=== PATIENT | female | born 1960 | race Caucasian/White ===

== ENCOUNTER → 2017-04-10 | Outpatient (CLI) | payer MEDICARE, OTHER ==
[2017-04-10 12:08] LABS: Appearance,Urine Clear (Clear); Basophils # (A) 0.1 k/uL (0-0.2); Basophils % (A) 0 %; Bilirubin,Urine Negative (Negative); CHCM 32.2; Eosinophils # (A) 0.1 k/uL (0-0.7); Eosinophils % (A) 1 %; Glucose,Urine (UA) Negative (Negative); HCT 45.1 % (34.0-46.0); HGB 14.3 gm/dL (11.4-16.0); Ketones,Urine Negative (Negative); Leukocyte Esterase,Urine Negative (Negative); Luc # (Auto) 0.09; Luc % (Auto) 1; Lymphocytes # (A) 2.6 k/uL (1.0-4.8); Lymphocytes % (A) 22 %; MCH 30.7 pg (25.0-35.0); MCHC 31.8 g/dL (31.0-37.0); MCV 96.7 fL (80.0-100.0); Mean Platelet Volume 7.5; Monocytes # (A) 0.4 k/uL (0-1.0); Monocytes % (A) 3 %; Neutrophils # (A) 8.5 k/uL (1.3-7.7); Neutrophils % (A) 73 %; Nitrite,Urine Negative (Negative); Protein,Urine Negative (Negative); RBC 4.67 m/uL (3.80-5.40); RDW 13.9 % (11.5-15.5); Specific Gravity,Urine 1.006 (1.001-1.035); UA Billing (MACRO vs. MICRO) CHEM; Urobilinogen,Urine <2.0 mg/dL (<2.0); WBC 11.7 k/uL (3.8-10.6); WBC (Perox) 11.77
[2017-04-10 12:16] LABS: Anion Gap 8 mmol/L; Blood Urea Nitrogen 12 mg/dL (7-17); Calcium 9.8 mg/dL (8.4-10.2); Carbon Dioxide 28 mmol/L (22-30); Chloride 105 mmol/L (98-107); Glucose 100 mg/dL (74-99); Non-African American GFR(MDRD) >60 (>60 ml/min/1.73 sqM); Potassium 4.5 mmol/L (3.5-5.1); Sodium 141 mmol/L (137-145)
== END | disposition home or self-care (01) ==
LOC: LABWHC1 11:36
PROVIDERS: ATTEND Urology
DX: Z01.812 Encounter for preprocedural laboratory examination (principal); E78.00 Pure hypercholesterolemia, unspecified; N39.3 Stress incontinence (female) (male); N81.9 Female genital prolapse, unspecified
CPT/HCPCS: 36415; 80048; 81003; 85025; 87086

== ENCOUNTER 2017-04-19 08:09 | Day surgery (SDC) | payer MEDICARE, OTHER ==
[~2017-04-19 08:09] MED LIST: DEXAMETHASONE SOD PHOSPHATE 10 MG/ML 1 ML VIAL IV ONE; FAMOTIDINE 20 MG/2 ML VIAL IV PRN; HYDROmorphone 1 MG/ML 1 ML SYRINGE IVP PRN; LACTATED RINGERS 1,000 ML IV SCH; LIDOCAINE 1% 20 ML VIAL (10MG/ML) FOR IV START INTRADERMA PRN; MIDAZOLAM 2 MG/2 ML VIAL IV PRN; ONDANSETRON 4 MG/2 ML VIAL IVP PRN; ceFAZolin 1,000 MG in DEXTROSE/WATER 1 50ML.BAG IV ONE
[2017-04-19] MEDS ORDERED: LIDOCAINE 1% 20 ML VIAL (10MG/ML) FOR IV START INTRADERMA ONE (08:42)
[2017-04-19 09:03] LABS: Prothrombin Time 10.4 sec (9.0-12.0)
[2017-04-19] MEDS ORDERED: SCOPOLAMINE 1.5MG/72HR PATCH TRANSDERM STA (09:31)
[2017-04-19] MEDS ORDERED: LIDOCAINE 1% INJ 10MG/ML (20 ML MDV) ONE (10:07)
[2017-04-19] MEDS ORDERED: fentaNYL (PF) 50 MCG/ML 2 ML AMP ONE (10:07)
[2017-04-19] MEDS ORDERED: MIDAZOLAM 2 MG/2 ML VIAL ONE (10:07)
[2017-04-19] MEDS ORDERED: ALBUTEROL INHALER 60 PUFF/8 GM INHALER INHALATION ONE (10:07)
[2017-04-19] MEDS ORDERED: SUCCINYLCHOLINE CHLORIDE 100 MG/5 ML SYR IV ONE (10:07)
[2017-04-19] MEDS ORDERED: PROPOFOL 10 MG/ML 20 ML VIAL IV ONE (10:07)
[2017-04-19] MEDS ORDERED: VASOPRESSIN 20 UNIT/ML 1 ML VIAL SQ ONE (10:33)
[2017-04-19] MEDS ORDERED: BUPIVACAIN-EPI 0.5%-1:200,000 30 ML VIAL SQ ONE (10:34)
[2017-04-19] MEDS ORDERED: BACITRACIN 500 UNIT/GM OINT 28.4 GM TUBE TOPICAL ONE (10:35)
[2017-04-19] MEDS ORDERED: GENTAMICIN 80 MG in SODIUM CHLORIDE 0.9% 500 ML IRRIGATION ONE (10:36)
[2017-04-19] MEDS ORDERED: IPRATROPIUM-ALBUTEROL 3 ML NEB INHALATION PRN (10:58)
--- NOTE | 2017-04-19 11:07 | P.OP ---
Date of Procedure: 04/19/17 Preoperative Diagnosis: Stress urinary incontinence, cystocele Postoperative Diagnosis: Same Procedure(s) Performed: Trans-obturator tape, anterior repair Implants: Anesthesia: CAMDENA Surgeon: Nikolas Wilhelm Estimated Blood Loss (ml): 50 Pathology: none sent Condition: stable Disposition: PACU Indications for Procedure: The patient is a 57-year-old female with stress urinary incontinence and a cystocele grade 2 she come for a trans-obturator tape and anterior repair the risks and complications including infection bleeding pain erosion and dyspareunia failure to control the incontinence urine retention graft issues been explained and understood and accepted. We did discuss at length the mesh controversy Operative Findings: Description of Procedure: The patient is brought to the operating suite she is given a general endotracheal anesthesia. She's placed lithotomy position with sterile prep and drape. A Cha catheters introduced sterilely. The labia sewn laterally with 2 -0 silk. A vaginal speculum was introduced. The anterior vaginal mucosa was elevated off the submucosa with a mixture of 20 units of Pitressin and 250 mL of saline. A midline anterior vaginal incision is made. I dissect the mucosa off the submucosa. The cystocele is reduced. I dissect lateral the bladder neck with Metzenbaum scissors. I make 2 incisions in the inguinal crease at the level of the clitoris. I passed the introducers through the inguinal incisions through the obturator foramen into the vaginal space making sure not to buttonhole the vagina or injure the bladder this is done bilaterally. I then irrigate the bladder to make sure there is no evidence of bladder injury and there is none as he urine is clear. I attached the tapes to the introducers and pull them back through the obturator foramen bilaterally. The graft sits at the mid urethra nicely such that a hemostat fit between the urethra and the graft. The redundant achieving is removed off the graft. Closed the anterior repair using interrupted 2-0 Vicryl's. The skin is then closed using a running 2-0 Vicryl. The redundant sheathing in the inguinal incisions are excised in the inguinal incisions are closed with 4-0 Vicryl. A vaginal packs place. The urine remains clear. The 2-0 silk's are removed. The patient's awake and returned recovery room good condition. She tolerated the procedure well. Blood loss is approximately 50 mL.
[2017-04-19] MEDS: HYDROcodone/APAP 7.5-325MG 1 EACH TAB PO PRN ×3 (13:14→21:49)
[2017-04-19 13:37] VITALS: BMI 24.7
[2017-04-19] MEDS ORDERED: ONDANSETRON 4 MG/2 ML VIAL IVP PRN (16:56)
[2017-04-19] MEDS ORDERED: NICOTINE 21MG/24HR PATCH TRANSDERM SCH (17:15)
[2017-04-19] MEDS: GABAPENTIN 300 MG CAP PO SCH (17:41)
[2017-04-19] MEDS: DEXTROSE 5%-0.45% NACL 1,000 ML IV SCH (17:44)
[2017-04-19] MEDS ORDERED: GABAPENTIN 400 MG CAP PO SCH (21:00)
[2017-04-19] MEDS ORDERED: traZODone HCL 50 MG TAB PO SCH (21:00)
[2017-04-19] MEDS: SYMBICORT 160-4.5 MCG INHALER INHALATION SCH (21:08)
[2017-04-20] MEDS: HYDROcodone/APAP 7.5-325MG 1 EACH TAB PO PRN ×2 (04:22→08:48)
[2017-04-20] MEDS: DEXTROSE 5%-0.45% NACL 1,000 ML IV SCH (04:24)
--- NOTE | 2017-04-20 06:31 | P.DS ---
Providers Attending physician: Nikolas Wilhelm Primary care physician: [facility] Course: The patient is a 57-year-old female post stroke who has stress incontinence and a cystocele. She was admitted 04/19/2017 for a trans-obturator tape and anterior repair. She underwent this without difficulty. Postoperatively she did well. Her pain was minimal. The packing and Cha were removed this morning. If she voids well she'll be discharged home. Postoperative instructions have been given. She will follow-up in the office in one week. Her condition upon discharge is good. Her activities Limited. Her medications are the same. She has pain medicine at home. Patient Condition at Discharge: Good Plan - Discharge Summary New Discharge Prescriptions: No Action Budesonide/Formoterol Fumarate [Symbicort 160-4.5 Mcg Inhaler] 2 puff INHALATION BID PRN PRN Reason: Shortness Of Breath Ipratropium/Albuterol Sulfate [Combivent Respimat Inhaler] 1 - 2 puff INHALATION QID PRN PRN Reason: Shortness Of Breath Sertraline [Zoloft] 100 mg PO DAILY Aspirin 325 mg PO DAILY traZODone HCL 150 mg PO HS Magnesium Oxide [Magox 400] 400 mg PO DAILY Hydrocodone/Acetaminophen [[place] 7.5-325] 1 tab PO Q4HR PRN PRN Reason: Pain Gabapentin [Neurontin] 600 mg PO BID Fluticasone/Vilanterol [Breo Ellipta 200-25 Mcg INH] 1 inhalation INHALATION DAILY Gabapentin [Neurontin] 1,200 mg PO HS Discharge Medication List Aspirin 325 mg PO DAILY 04/18/17 [History] Budesonide/Formoterol Fumarate [Symbicort 160-4.5 Mcg Inhaler] 2 puff INHALATION BID PRN 04/18/17 [History] Fluticasone/Vilanterol [Breo Ellipta 200-25 Mcg INH] 1 inhalation INHALATION DAILY 04/18/17 [History] Gabapentin [Neurontin] 1,200 mg PO HS 04/18/17 [History] Gabapentin [Neurontin] 600 mg PO BID 04/18/17 [History] Hydrocodone/Acetaminophen [[place] 7.5-325] 1 tab PO Q4HR PRN 04/18/17 [History] Ipratropium/Albuterol Sulfate [Combivent Respimat Inhaler] 1 - 2 puff INHALATION QID PRN 04/18/17 [History] Magnesium Oxide [Magox 400] 400 mg PO DAILY 04/18/17 [History] Sertraline [Zoloft] 100 mg PO DAILY 04/18/17 [History] traZODone HCL 150 mg PO HS 04/18/17 [History] Follow up Appointment(s)/Referral(s): Nikolas Wilhelm MD [STAFF PHYSICIAN] - 1 Week Patient Instructions/Handouts: Bladder Sling Procedure (DC) Discharge Disposition: HOME SELF-CARE
[2017-04-20] MEDS: SYMBICORT 160-4.5 MCG INHALER INHALATION SCH (08:32)
[2017-04-20] MEDS: GABAPENTIN 300 MG CAP PO SCH (08:48)
[2017-04-20] MEDS ORDERED: NON-FORMULARY DRUG (Fluticasone/Vilanterol [Breo Ellipta 200-25 Mcg Inh] 1 INHALATION) INHALATION SCH (09:00)
[2017-04-20] MEDS ORDERED: MAGNESIUM OXIDE 400 MG TAB PO SCH (09:00)
[2017-04-20] MEDS ORDERED: SERTRALINE 100 MG TAB PO SCH (09:00)
[2017-04-20 09:31] VITALS: BP 108/57; PULSE 88; RESP 20; TEMP 98.1
== END 2017-04-20 10:05 | disposition home or self-care (01) ==
LOC: OR 08:09 → 6PED 11:09 → OR 04-20 10:05
PROVIDERS: ATTEND Urology
DX: N81.11 Cystocele, midline (principal); N39.46 Mixed incontinence; R35.1 Nocturia; E78.00 Pure hypercholesterolemia, unspecified; F41.9 Anxiety disorder, unspecified; J44.9 Chronic obstructive pulmonary disease, unspecified; F32.9 Major depressive disorder, single episode, unspecified; F17.210 Nicotine dependence, cigarettes, uncomplicated; I69.398 Other sequelae of cerebral infarction; K21.9 Gastro-esophageal reflux disease without esophagitis; Z79.82 Long term (current) use of aspirin; Z79.51 Long term (current) use of inhaled steroids; Z79.891 Long term (current) use of opiate analgesic; Z79.899 Other long term (current) drug therapy; Z88.5 Allergy status to narcotic agent
CPT/HCPCS: 94640 ×3; 93005; 85610; 85730; 57240; C1771; S4990; J2250; J1580; J1100; J2405; J2001; J3010; J0690; J0330; J2704

== ENCOUNTER → 2018-07-06 | Outpatient (CLI) | payer MEDICARE, OTHER ==
--- NOTE | 2018-07-08 22:35 | CT ---
EXAMINATION TYPE: CT abdomen pelvis wo con DATE OF EXAM: 07/06/2018 HISTORY: Lower abdominal pain per patient. Ventral hernia per order. CT DLP: 795 mGycm. Automated Exposure Control for Dose Reduction was Utilized. TECHNIQUE: CT scan of the abdomen and pelvis is performed without oral or IV contrast. COMPARISON: NONE FINDINGS: Within the limitations of a non-contrast study, the following observations are made. LUNG BASES: There is patchy bibasilar scarring and/or atelectasis. There is suspected closure atrial septal closure device axial image 8. Moderate to severe coronary constipation in the LAD and right ci rcumflex distribution is present. LIVER/GB: Cholecystectomy clips are noted. PANCREAS: No significant abnormality is seen. SPLEEN: No significant abnormality is seen. ADRENALS: There is 1.9 x 1.5 cm left adrenal mass, Hounsfield units average 14. A malignant etiology cannot be excluded. This is however unchanged in size from chest CT April 06, 2016 thus favoring benign etiology. KIDNEYS: No renal calculi or hydronephrosis. Subcentimeter exophytic low dense lesion lower pole of l eft kidney is too small to further characterize. Bladder is poorly distended and thus suboptimally ev aluated. BOWEL: Evaluation of bowel is suboptimal secondary to lack of enteric contrast. Small hiatal hernia s een. Gas filled mildly prominent stomach is seen. There is prominence of debris in the antrum extendi ng into first portion of duodenum. There is no suspicious small or large bowel dilatation otherwise s een. There is low lying cecum into the anterior right pelvis. There is slight gaseous prominence of c olon near splenic flexure. GENITAL ORGANS: Anteverted uterus is seen. Some scattered pelvic phleboliths are present. LYMPH NODES: No greater than 1cm abdominal or pelvic lymph nodes are appreciated. OSSEOUS STRUCTURES: Moderate to advanced disc space narrowing L5-S1 level with mild to moderate anter ior spurring is present. Posterior disc herniation L4-L5 level effaces the anterior thecal sac sagitt al image 56 and axial image 77 right paracentral location. Facet arthropathy lower lumbar levels is n oted. Moderate multilevel spurring in the thoracic spine is seen. Moderate joint space loss in both h ips is present. OTHER: There is tiny fat-containing umbilical hernia. No additional suspicious ventral wall hernia is identified. IMPRESSION: Tiny fat-containing umbilical hernia. No additional ventral wall hernia is evident.
== END | disposition home or self-care (01) ==
LOC: RADCTMAIN 18:47
PROVIDERS: ATTEND Surgery Plastic and Reconstructive Surgery
DX: K42.9 Umbilical hernia without obstruction or gangrene (principal)
CPT/HCPCS: 74176

== ENCOUNTER → 2018-07-06 | Outpatient (CLI) | payer MEDICARE, OTHER ==
--- NOTE | 2018-07-10 12:15 | MM ---
Reason for exam: screening (asymptomatic). Last mammogram was performed 2 years and 4 months ago. History: Patient is postmenopausal and history of endometrial cancer. Benign core biopsy of the right breast. Physical Findings: A clinical breast exam by your physician is recommended on an annual basis and results should be correlated with mammographic findings. MG 3D Screening Mammo W/Cad Bilateral CC and MLO view(s) were taken. Prior study comparison: March 16, 2016, bilateral MG screening mammo w CAD. February 22, 2013, CAD bilateral diagnostic mammogram. There are scattered fibroglandular densities. Previous mammotome biopsy in the right breast. No significant changes when compared with prior studies. ASSESSMENT: Benign, BI-RAD 2 RECOMMENDATION: Routine screening mammogram of both breasts in 1 year.
== END | disposition home or self-care (01) ==
LOC: RADMAMWWP 09:21
PROVIDERS: ATTEND Family Medicine
DX: Z12.31 Encounter for screening mammogram for malignant neoplasm of breast (principal)
CPT/HCPCS: 77063; 77067

== ENCOUNTER → 2018-08-27 | Outpatient (CLI) | payer MEDICARE, OTHER ==
--- NOTE | 2018-08-27 12:08 | FL ---
EXAMINATION TYPE: FL sniff test without CXR DATE OF EXAM: 08/27/2018 COMPARISON: CT thorax dated 04/06/2016 HISTORY: Prior CVA. Diaphragmatic disorder. TECHNIQUE: Fluoroscopy. 37 seconds of fluoroscopy time was utilized with 0 images saved. FINDINGS: Chronic left hemidiaphragm elevation is unchanged from the prior CT thorax of 04/06/2016. Th ere is symmetric hemidiaphragm excursion without paradoxical motion on real-time fluoroscopy. Left he midiaphragm elevation is noted on the exam of 10/02/2013 as well. IMPRESSION: No abnormal diaphragmatic motion to suggest phrenic nerve palsy or paralysis.
== END | disposition home or self-care (01) ==
LOC: RADFLWHC 11:15
PROVIDERS: ATTEND Internal Medicine
DX: J98.6 Disorders of diaphragm (principal); Z88.5 Allergy status to narcotic agent
CPT/HCPCS: 76000

== ENCOUNTER 2018-09-19 08:53 | Day surgery (SDC) | payer MEDICARE, OTHER ==
[2018-08-24 14:18] VITALS: BMI 23.1
--- NOTE | 2018-09-19 05:47 | P.GSHP ---
History of Present Illness H&P Date: 09/19/18 CHIEF COMPLAINT: GERD and colon screen HISTORY OF PRESENT ILLNESS: The patient is a 58-year-old female who presents with gastroesophageal reflux disease and need for colon screen. Upper and lower endoscopy were offered for further evaluation and management. PAST MEDICAL HISTORY: Please see list. PAST SURGICAL HISTORY: Please see list. MEDICATIONS: Please see list. ALLERGIES: Please see list. SOCIAL HISTORY: No illicit drug use FAMILY HISTORY: No reports of Crohn disease or ulcerative colitis. REVIEW OF ORGAN SYSTEMS: CONSTITUTIONAL: No reports of fevers or chills. GI: Denies any blood in stools or constipation. PHYSICAL EXAM: VITAL SIGNS: Stable GENERAL: Well-developed pleasant in no acute distress. HEENT: No scleral icterus. Extraocular movements grossly intact. Moist buccal mucosa. NECK: Supple without lymphadenopathy. CHEST: Unlabored respirations. Equal bilateral excursions. CARDIOVASCULAR: Regular rate and rhythm. Distal 2+ pulses. ABDOMEN: Soft, nondistended. MUSCULOSKELETAL: No clubbing, cyanosis, or edema. ASSESSMENT: 1. Gastroesophageal reflux disease 2. Colon screen. PLAN: 1. 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 2016 bladder sling, anterior vaginal repair Past Anesthesia/Blood Transfusion Reactions: Motion Sickness Smoking Status: Current every day smoker - Past Family History Mother Family Medical History: Cancer Father Family Medical History: Deep Vein Thrombosis (DVT) Medications and Allergies Home Medications Medication Instructions Recorded Confirmed Type Budesonide/Formoterol Fumarate 2 puff INHALATION BID PRN 04/18/17 09/17/18 History [Symbicort 160-4.5 Mcg Inhaler] Fluticasone/Vilanterol [Breo 1 inhalation INHALATION QAM 04/18/17 09/17/18 History Ellipta 200-25 Mcg INH] Gabapentin [Neurontin] 600 mg PO QID PRN 04/18/17 09/17/18 History Hydrocodone/Acetaminophen [[place] 1 tab PO TID PRN 04/18/17 09/17/18 History 7.5-325] Ipratropium/Albuterol Sulfate 1 - 2 puff INHALATION QID PRN 04/18/17 09/17/18 History [Combivent Respimat Inhaler] traZODone HCL 150 mg PO HS 04/18/17 09/17/18 History Allergies Allergy/AdvReac Type Severity Reaction Status Date / Time codeine Allergy Severe Rapid Verified 09/17/18 10:16 Heart Rate, CHEST PAIN
[~2018-09-19 08:53] MED LIST changes: -DEXAMETHASONE SOD PHOSPHATE 10 MG/ML 1 ML VIAL IV ONE; -FAMOTIDINE 20 MG/2 ML VIAL IV PRN; -LIDOCAINE 1% 20 ML VIAL (10MG/ML) FOR IV START INTRADERMA PRN; -MIDAZOLAM 2 MG/2 ML VIAL IV PRN; -ONDANSETRON 4 MG/2 ML VIAL IVP PRN; -ceFAZolin 1,000 MG in DEXTROSE/WATER 1 50ML.BAG IV ONE
[2018-09-19] MEDS ORDERED: LIDOCAINE 1% 20 ML VIAL (10MG/ML) FOR IV START INTRADERMA ONE (09:59)
[2018-09-19 10:03] VITALS: TEMP 98.4
[2018-09-19] MEDS ORDERED: PROPOFOL 10 MG/ML 20 ML VIAL IV ONE (10:28)
[2018-09-19] MEDS ORDERED: LIDOCAINE 1% INJ 10MG/ML (20 ML MDV) ONE (10:28)
--- NOTE | 2018-09-19 10:41 | P.PCN ---
Date of Procedure: 09/19/18 Description of Procedure: PREOPERATIVE DIAGNOSIS: Gastroesophageal reflux disease. POSTOPERATIVE DIAGNOSIS: Erosive esophagitis Gastritis. Gastroesophageal reflux disease. Diaphragmatic hiatal hernia OPERATION: Esophagogastroduodenoscopy with biopsies along antrum and GE junction SURGEON: Carmencita Graham MD ANESTHESIA: MAC. INDICATIONS: The patient is a 58-year-old female who presents with a history of reflux disease. Benefits and risks of the procedure were described. Informed consent was obtained. DESCRIPTION: The patient was brought into the endoscopy suite and laid in the left lateral decubitus position. An Olympus gastroscope was passed along the posterior oropharynx down to the distal esophagus where the squamocolumnar junction was encountered at 35 cm from the incisors. The stomach was entered and no bile reflux was found. Additional findings are listed below. Biopsies with cold forceps were obtained of the antrum. The first through third portion of the duodenum was examined and unremarkable. Retroflexion of the scope confirmed Hill grade 2 lower esophageal valve. The squamocolumnar junction demonstrated LA grade C erosive esophagitis. The stomach was desufflated. The patient tolerated the procedure well. FINDINGS: Squamocolumnar junction 35 cm from the incisors. Diaphragmatic hiatus at 37 cm. Hiatal hernia, 2 cm Hill grade 2 lower esophageal valve. LA grade C erosive esophagitis with ulceration No active duodenitis. Chronic gastritis RECOMMENDATIONS: Upper endoscopy as needed.
--- NOTE | 2018-09-19 11:00 | P.PCN ---
Date of Procedure: 09/19/18 Description of Procedure: PREOPERATIVE DIAGNOSIS: Colonoscopy screening POSTOPERATIVE DIAGNOSIS: Colonoscopy screening Ascending colon tubular adenoma Sigmoid colon adenoma Transverse colon adenoma External hemorrhoids, grade 2. OPERATION: Colonoscopy to the ileocecal valve and appendiceal orifice. Colonoscopy with multiple hot snare polypectomies SURGEON: Carmencita Graham MD. ANESTHESIA: MAC. INDICATIONS: The patient is a 58-year-old female who presents for colonoscopy screening. Benefits and risks were described and informed consent was obtained. DESCRIPTION OF PROCEDURE: The patient had undergone Gatorade, MiraLAX and Dulcolax prep. She had been brought into the operating room and laid in the left lateral decubitus position. After adequate intravenous sedation, the rectum was examined with 2% lidocaine jelly. External hemorrhoids were encountered. The rectal tone was within normal limits. No lesions were palpated in the rectal vault. An Olympus colonoscope was advanced until the ascending was reached. Abdominal wall pressure was used to advance the scope. The prep was fair with visualization of the mucosal folds. The scope was removed with visualization of each mucosal fold. No scattered diverticulosis was encountered. Multiple colonic polyps were found and snare polypectomy. No evidence of focal colitis was found. Retroflexion of the scope demonstrated grade 2 internal hemorrhoids without active bleeding or inflammation. The colon was desufflated. The patient had tolerated the procedure well. Withdrawal time was over 6 minutes. FINDINGS: Internal hemorrhoids, grade 1 External hemorrhoids, grade 2. No arteriovenous malformations. No sigmoid diverticulosis Removal of 3 polyps: - Snare polypectomy 20 cm from the anal verge, 4 mm tubulovillous adenoma polyp. - Snare polypectomy mid transverse colon, 8 mm flat villous adenoma polyp. - Snare polypectomy ascending colon 6 mm flat villous adenoma polyp. No focal colitis. RECOMMENDATIONS: Given severity of tubular adenomas, recommend repeat colonoscopy 2 years, 2019. Plan - Discharge Summary New Discharge Prescriptions: New Omeprazole 40 mg PO DAILY #14 capsule.dr Bhatia Action Budesonide/Formoterol Fumarate [Symbicort 160-4.5 Mcg Inhaler] 2 puff INHALATION BID PRN PRN Reason: Shortness Of Breath Ipratropium/Albuterol Sulfate [Combivent Respimat Inhaler] 1 - 2 puff INHALATION QID PRN PRN Reason: Shortness Of Breath traZODone HCL 150 mg PO HS Hydrocodone/Acetaminophen [[place] 7.5-325] 1 tab PO TID PRN PRN Reason: Pain Gabapentin [Neurontin] 600 mg PO QID PRN PRN Reason: Pain Fluticasone/Vilanterol [Breo Ellipta 200-25 Mcg INH] 1 inhalation INHALATION QAM Discharge Medication List Budesonide/Formoterol Fumarate [Symbicort 160-4.5 Mcg Inhaler] 2 puff INHALATION BID PRN 04/18/17 [History] Fluticasone/Vilanterol [Breo Ellipta 200-25 Mcg INH] 1 inhalation INHALATION QAM 04/18/17 [History] Gabapentin [Neurontin] 600 mg PO QID PRN 04/18/17 [History] Hydrocodone/Acetaminophen [[place] 7.5-325] 1 tab PO TID PRN 04/18/17 [History] Ipratropium/Albuterol Sulfate [Combivent Respimat Inhaler] 1 - 2 puff INHALATION QID PRN 04/18/17 [History] traZODone HCL 150 mg PO HS 04/18/17 [History] Omeprazole 40 mg PO DAILY #14 capsule. 09/19/18 [Rx] Follow up Appointment(s)/Referral(s): Carmencita Graham MD [STAFF PHYSICIAN] - 10/02/18 Patient Instructions/Handouts: Gastroesophageal Reflux Disease (DC), Hiatal Hernia (DC) Discharge Disposition: HOME SELF-CARE
[2018-09-19 11:20] VITALS: RESP 16
[2018-09-19 11:25] VITALS: BP 119/63; PULSE 90
== END 2018-09-19 11:45 | disposition home or self-care (01) ==
LOC: ORWHC2ENDO 08:53
PROVIDERS: ATTEND Surgery Plastic and Reconstructive Surgery
DX: Z12.11 Encounter for screening for malignant neoplasm of colon (principal); D12.5 Benign neoplasm of sigmoid colon; D12.3 Benign neoplasm of transverse colon; D12.2 Benign neoplasm of ascending colon; K21.9 Gastro-esophageal reflux disease without esophagitis; K64.4 Residual hemorrhoidal skin tags; K64.1 Second degree hemorrhoids; J44.9 Chronic obstructive pulmonary disease, unspecified; I69.351 Hemiplegia and hemiparesis following cerebral infarction affecting right dominant side; M19.90 Unspecified osteoarthritis, unspecified site; F17.200 Nicotine dependence, unspecified, uncomplicated; K22.10 Ulcer of esophagus without bleeding; K29.50 Unspecified chronic gastritis without bleeding; K44.9 Diaphragmatic hernia without obstruction or gangrene; Z99.81 Dependence on supplemental oxygen; G43.909 Migraine, unspecified, not intractable, without status migrainosus; Z79.51 Long term (current) use of inhaled steroids; Z79.899 Other long term (current) drug therapy; Z88.5 Allergy status to narcotic agent
CPT/HCPCS: 88305; 45385; 43239; J2001; J2704

== ENCOUNTER → 2018-10-08 | Outpatient (CLI) | payer MEDICARE, OTHER ==
[2018-10-08 16:21] LABS: MCH 30.1 pg (25.0-35.0); MCHC 32.6 g/dL (31.0-37.0); MCV 92.3 fL (80.0-100.0); Mean Platelet Volume 7.4; Platelet Count 231 k/uL (150-450); RBC 5.31 m/uL (3.80-5.40); RDW 13.7 % (11.5-15.5); WBC 9.1 k/uL (3.8-10.6)
[2018-10-08 16:27] LABS: Anion Gap 7 mmol/L; Blood Urea Nitrogen 12 mg/dL (7-17); Carbon Dioxide 26 mmol/L (22-30); Chloride 109 mmol/L (98-107); Sodium 142 mmol/L (137-145)
== END ==
LOC: LABPAT 15:40
PROVIDERS: ATTEND Internal Medicine Interventional Cardiology
DX: Z01.812 Encounter for preprocedural laboratory examination (principal); Q21.1 Atrial septal defect; R06.02 Shortness of breath; R94.39 Abnormal result of other cardiovascular function study
CPT/HCPCS: 36415; 80051; 82565; 84520; 85027

== ENCOUNTER → 2019-01-21 | Outpatient (CLI) | payer MEDICARE, OTHER | LOC: LABWHC1 11:34 | PROVIDERS: ATTEND Psychiatry & Neurology Pain Medicine | DX: Z01.818 Encounter for other preprocedural examination (principal) | CPT/HCPCS: 36415; 93005 ==

== ENCOUNTER → 2019-09-19 | Outpatient (CLI) | payer MEDICARE, OTHER ==
--- NOTE | 2019-09-19 16:45 | CTL ---
EXAMINATION TYPE: CT Low Dose Lung DATE OF EXAM ORDERED: 09/19/2019 COMPARISON: None HISTORY: . Low Dose CT Lung Screening CT DLP: [address] CTDI: 2.18 mGy IV CONTRAST USED: None. SCREENING VISIT: First visit COMPARISON: None. TECHNIQUE: Low dose computed tomography scan was performed through the chest at 1 millimeter thick se ctions and reconstructed images in the coronal plane at [address] DIAGNOSTIC QUALITY: Satisfactory FINDINGS: LUNG NODULES: Several sub-3 mm pulmonary nodules left lower lobe seen best on image 26. Additional no dules seen image 27. Multiple nodules are seen at the right lung base measuring up to 6.4 mm. No della tional nodules are evident. LUNGS: COPD: Severity: Mild Fibrosis: Severity:None Lymph nodes: None Other findings: None RIGHT PLEURAL SPACE: Effusion: None Calcification: None Thickening: None Pneumothorax: None LEFT PLEURAL SPACE: Effusion: None Calcification: None Thickening: None Pneumothorax: None HEART: Heart Size: Mildly enlarged Coronary calcification: Mild Pericardial effusion: None OTHER FINDINGS: Upper abdomen: No significant abnormality Bony thorax: Degenerative changes Supraclavicular region: No significant abnormalityOther: No significant abnormalityI IMPRESSION: 1. Probably benign findings. Six-month follow-up low dose CT recommended of the chest. FOLLOW UP CT CHEST RECOMMENDATION: Follow-up screening in one year. Recommend smoking cessation. CT LUNG RAD: LUNG RAD CATEGORY 3 probably benign
== END | disposition home or self-care (01) ==
LOC: RADCTMAIN 15:58
PROVIDERS: ATTEND Internal Medicine
DX: Z12.2 Encounter for screening for malignant neoplasm of respiratory organs (principal); Z87.891 Personal history of nicotine dependence

== ENCOUNTER → 2020-05-19 | Outpatient (CLI) | payer MEDICARE, OTHER ==
--- NOTE | 2020-05-20 07:46 | CTL ---
EXAMINATION TYPE: CT Low Dose Lung DATE OF EXAM ORDERED: 05/19/2020 HISTORY: Personal history tobacco use and nicotine dependence. Lung cancer screening CT DLP: [address] CTDI: 2.26 mGy Automated exposure control for dose reduction was used. SCREENING VISIT: 2 COMPARISON: Prior low dose lung CT 09/09/2019 TECHNIQUE: Low dose computed tomography scan was performed through the chest at 1 mm thick sections a nd reconstructed images in the coronal plane at [address] DIAGNOSTIC QUALITY: Satisfactory FINDINGS: LUNG NODULES: Stable LUNGS: Stable, mild COPD2 and minimal fibrosis RIGHT PLEURAL SPACE: Effusion: None Calcification: None Thickening: None Pneumothorax: None LEFT PLEURAL SPACE: Effusion: None Calcification: None Thickening: None Pneumothorax: None HEART: Stable coronary artery calcifications and normal heart size. Postprocedural changes are noted along t he atrial septum OTHER FINDINGS: Upper abdomen: Postcholecystectomy Bony thorax: Unchanged Supraclavicular region: Unremarkable Other: There is a small hiatal hernia. IMPRESSION: Benign lung screening FOLLOW UP CT CHEST RECOMMENDATION: [address] LUNG RAD: 2
== END | disposition home or self-care (01) ==
LOC: RADCTMAIN 16:55
PROVIDERS: ATTEND Internal Medicine
DX: Z12.2 Encounter for screening for malignant neoplasm of respiratory organs (principal); F17.210 Nicotine dependence, cigarettes, uncomplicated

== ENCOUNTER 2020-10-08 16:40 | Emergency (ER) | payer MEDICARE, OTHER ==
[2020-10-08 16:44] VITALS: TEMP 98.4
--- NOTE | 2020-10-08 17:03 | ED ---
General Adult HPI - General Chief complaint: Chest Pain Stated complaint: Chest Pain Time Seen by Provider: 10/08/20 16:46 Source: patient Mode of arrival: ambulatory Limitations: no limitations - History of Present Illness Initial comments: Dictation was produced using INDOM dictation software. please excuse any grammatical, word or spelling errors. This patient was cared for during a federal and state declared state of emergency secondary to Covid 19 Chief Complaint: 60-year-old female past medical history of COPD, CVA with resi dual right-sided weakness presents with chest pain, shortness of breath History of Present Illness: 89-year-old female she was course to coming to the emergency department by her daughter. Patient states that for the last year she's been having episodes of chest pain and shortness of breath. She reports that she gets these episodes maybe once every 4 days. She states the pain is pleuritic in nature located to the right anterior chest. Sometimes when she gets these attacks they can be very severe causing her to double over. She's been having these episodes for approximately one year now. Patient also complains of shortness of breath. She attributes this to her COPD. She has a chronic cough that has been unchanged. The reason why she is in emergency department today is because she was out with her daughter who noticed that patient was having symptoms so she was brought to the emergency room. Patient has any constitutional symptoms. No obvious exposures to anyone with coronavi yanni. She does have a history of cerebral vascular accident. She has a history of cardiac septal defect. Patient also has complaint of a in her bellybutton that she is having difficulty cleaning. Dad reports that she tries to clean twice a day. She describes the debris as "crispy." Patient does not have any history of DVT. She denies any lower extremity swelling. No history of cancer The ROS documented in this emergency department record has been reviewed and confirmed by me. Those systems with pertinent positive or negative responses have been documented in the HPI. All other systems are other negative and/or noncontributory. PHYSICAL EXAM: General Impression: Alert and oriented x3, not in acute distress HEENT: Normocephalic atraumatic, extra-ocular movements intact, pupils equal and reactive to light bilaterally, mucous membranes moist. Cardiovascular: Heart regular rate and rhythm Chest: Able to complete full sentences, no retractions, no tachypnea, mild diffuse crackles to auscultation of the lungs some the left lung base Abdomen: abdomen soft, non-tender, non-distended, no organomegaly Musculoskeletal: Pulses present and equal in all extremities, no peripheral kaitlin ma Motor: no focal deficits noted Neurological: CN II-XII grossly intact, contracture to the right upper extremity Skin: Intact with no visualized rashes Psych: Normal affect and mood ED course: 60-year-old female presents with chest pain, shortness of breath ongoing for one year. Patient's pain is described as very atypical. As upon arrival shows 93% on room air, worse vital signs within acceptable limits. Patient's well-appearing at bedside. Patient laughs and jokes with me. She does have end inspiratory crackles with auscultation to the lungs. There is concern patient has pneumonia. Clinical presentation does not suggest possible pulmonary embolus. She has no history of DVT, no history of PE. No history of lower extremity swelling. Physical examination is benign. She is not hypoxic or tachycardic. Laboratory evaluation obtained. CBC, coag panel, metabolic panel is unrema rkable. Troponin is negative. Brain natruretic peptides negative. Carotid virus test negative. Chest x-ray shows no acute processes. Patient's belly button was cleaned. She is satisfied with the result. Patient discharged. Patient vital presentation consistent with atypical chest pain. Patient is advised follow-up with her primary care physician. EKG interpretation: Ventricular rate 90, normal sinus rhythm,. Interval 116, QRS 84, QTC 445. No MS prolongation, no QTC prolongation, no ST or T-wave changes noted. EKG compared to 01/21/2019 showing no changes. Overall, this EKG is unremarkable - Related Data Home Medications Medication Instructions Recorded Confirmed Fluticasone/Vilanterol [Breo 1 inhalation INHALATION RT-DAILY 04/18/17 10/08/20 Ellipta 200-25 Mcg INH] Gabapentin [Neurontin] 600 mg PO QID PRN 04/18/17 10/08/20 Hydrocodone/Acetaminophen [[place] 1 tab PO TID PRN 04/18/17 10/08/20 7.5-325] Ipratropium/Albuterol Sulfate 1 - 2 puff INHALATION QID PRN 04/18/17 10/08/20 [Combivent Respimat Inhaler] traZODone HCL 150 mg PO HS 04/18/17 10/08/20 Albuterol Sulfate [Proair Hfa] 1 - 2 puff INHALATION Q6HR PRN 08/25/20 10/08/20 Mirabegron [Myrbetriq] 25 mg PO DAILY 08/25/20 10/08/20 Baclofen 5 - 10 mg PO TID PRN 10/08/20 10/08/20 Xzprmcdcyb-Mnqrgfzacqyml-Dhqoaglp 1 tab PO ONCE PRN 10/08/20 10/08/20 (Unknown Strength) Previous Rx's Medication Instructions Recorded Omeprazole 40 mg PO DAILY #14 capsule. 09/19/18 Allergies Allergy/AdvReac Type Severity Reaction Status Date / Time codeine Allergy Severe Rapid Verified 10/08/20 17:49 Heart Rate, CHEST PAIN Review of Systems ROS Statement: Those systems with pertinent positive or pertinent negative responses have been documented in the HPI. ROS Other: All systems not noted in ROS Statement are negative. 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 Problems with speech. Back pain. History of Any Multi-Drug Resistant Organisms: None Reported Past Surgical History: Cholecystectomy Additional Past Surgical History / Comment(s): REPAIR OF HOLE IN HEART". 04-19-2017 bladder sling, anterior vaginal repair Past Anesthesia/Blood Transfusion Reactions: No Reported Reaction Past Psychological History: No Psychological Hx Reported Smoking Status: Current every day smoker Past Alcohol Use History: None Reported Past Drug Use History: None Reported - Past Family History Mother Family Medical History: Cancer General Exam Limitations: no limitations Course Vital Signs 10/08/20 10/08/20 16:41 18:38 Temperature 98.4 F Pulse Rate 96 82 Respiratory 22 17 Rate Blood Pressure 115/78 112/60 O2 Sat by Pulse 93 L 95 Oximetry Medical Decision Making - Lab Data Result diagrams: 10/08/20 17:09 10/08/20 17:09 Lab Results 10/08/20 10/08/20 10/08/20 Range/Units 17:09 17:09 17:09 WBC 6.3 (3.8-10.6) k/uL RBC 4.64 (3.80-5.40) m/uL Hgb 14.4 (11.4-16.0) gm/dL Hct 42.7 (34.0-46.0) % MCV 92.0 (80.0-100.0) fL MCH 30.9 (25.0-35.0) pg MCHC 33.7 (31.0-37.0) g/dL RDW 13.3 (11.5-15.5) % Plt Count 165 (150-450) k/uL MPV 7.7 Neutrophils % 45 % Lymphocytes % 41 % Monocytes % 8 % Eosinophils % 3 % Basophils % 1 % Neutrophils # 2.8 (1.3-7.7) k/uL Lymphocytes # 2.6 (1.0-4.8) k/uL Monocytes # 0.5 (0-1.0) k/uL Eosinophils # 0.2 (0-0.7) k/uL Basophils # 0.1 (0-0.2) k/uL PT 10.3 (9.0-12.0) sec INR 1.0 (<1.2) APTT 24.5 (22.0-30.0) sec Sodium 137 (137-145) mmol/L Potassium 4.0 (3.5-5.1) mmol/L Chloride 106 (98-107) mmol/L Carbon Dioxide 26 (22-30) mmol/L Anion Gap 5 mmol/L BUN 9 (7-17) mg/dL Creatinine 0.55 (0.52-1.04) mg/dL Est GFR (CKD-EPI)AfAm >90 (>60 ml/min/1.73 sqM) Est GFR (CKD-EPI)NonAf >90 (>60 ml/min/1.73 sqM) Glucose 104 H (74-99) mg/dL Calcium 9.0 (8.4-10.2) mg/dL Magnesium 2.0 (1.6-2.3) mg/dL Total Bilirubin 0.3 (0.2-1.3) mg/dL AST 18 (14-36) U/L ALT 11 (4-34) U/L Alkaline Phosphatase 70 (38-126) U/L Troponin I (0.000-0.034) ng/mL NT-Pro-B Natriuret Pep pg/mL Total Protein 6.8 (6.3-8.2) g/dL Albumin 3.9 (3.5-5.0) g/dL Coronavirus (PCR) (Not Detectd) 10/08/20 10/08/20 10/08/20 Range/Units 17:09 17:09 17:09 WBC (3.8-10.6) k/uL RBC (3.80-5.40) m/uL Hgb (11.4-16.0) gm/dL Hct (34.0-46.0) % MCV (80.0-100.0) fL MCH (25.0-35.0) pg MCHC (31.0-37.0) g/dL RDW (11.5-15.5) % Plt Count (150-450) k/uL MPV Neutrophils % % Lymphocytes % % Monocytes % % Eosinophils % % Basophils % % Neutrophils # (1.3-7.7) k/uL Lymphocytes # (1.0-4.8) k/uL Monocytes # (0-1.0) k/uL Eosinophils # (0-0.7) k/uL Basophils # (0-0.2) k/uL PT (9.0-12.0) sec INR (<1.2) APTT (22.0-30.0) sec Sodium (137-145) mmol/L Potassium (3.5-5.1) mmol/L Chloride (98-107) mmol/L Carbon Dioxide (22-30) mmol/L Anion Gap mmol/L BUN (7-17) mg/dL Creatinine (0.52-1.04) mg/dL Est GFR (CKD-EPI)AfAm (>60 ml/min/1.73 sqM) Est GFR (CKD-EPI)NonAf (>60 ml/min/1.73 sqM) Glucose (74-99) mg/dL Calcium (8.4-10.2) mg/dL Magnesium (1.6-2.3) mg/dL Total Bilirubin (0.2-1.3) mg/dL AST (14-36) U/L ALT (4-34) U/L Alkaline Phosphatase (38-126) U/L Troponin I <0.012 (0.000-0.034) ng/mL NT-Pro-B Natriuret Pep 28 pg/mL Total Protein (6.3-8.2) g/dL Albumin (3.5-5.0) g/dL Coronavirus (PCR) Not Detected (Not Detectd) Disposition Clinical Impression: Chest pain Disposition: HOME SELF-CARE Condition: Good Instructions (If sedation given, give patient instructions): Chest Pain (ED) Is patient prescribed a controlled substance at d/c from ED?: No Referrals: Senait Alfaro MD [Primary Care Provider] - 1-2 days Time of Disposition: 19:05
[2020-10-08 17:18] LABS: Basophils # (A) 0.1 k/uL (0-0.2); Basophils % (A) 1 %; Eosinophils # (A) 0.2 k/uL (0-0.7); Eosinophils % (A) 3 %; HCT 42.7 % (34.0-46.0); HGB 14.4 gm/dL (11.4-16.0); Lymphocytes # (A) 2.6 k/uL (1.0-4.8); Lymphocytes % (A) 41 %; MCH 30.9 pg (25.0-35.0); MCHC 33.7 g/dL (31.0-37.0); Mean Platelet Volume 7.7; Monocytes # (A) 0.5 k/uL (0-1.0); Monocytes % (A) 8 %; Neutrophils # (A) 2.8 k/uL (1.3-7.7); Neutrophils % (A) 45 %; Platelet Count 165 k/uL (150-450); RBC 4.64 m/uL (3.80-5.40); RDW 13.3 % (11.5-15.5); WBC 6.3 k/uL (3.8-10.6)
[2020-10-08 17:29] LABS: ALT 11 U/L (4-34); AST 18 U/L (14-36); African American GFR (CKD) >90 (>60 ml/min/1.73 sqM); Albumin 3.9 g/dL (3.5-5.0); Alkaline Phosphatase 70 U/L (38-126); Anion Gap 5 mmol/L; Blood Urea Nitrogen 9 mg/dL (7-17); Carbon Dioxide 26 mmol/L (22-30); Chloride 106 mmol/L (98-107); Glucose 104 mg/dL (74-99); Non-African American GFR(CKD) >90 (>60 ml/min/1.73 sqM); Sodium 137 mmol/L (137-145); Total Bilirubin 0.3 mg/dL (0.2-1.3); Total Protein 6.8 g/dL (6.3-8.2)
[2020-10-08 17:42] LABS: Partial Thromboplastin Time 24.5 sec (22.0-30.0); Prothrombin Time 10.3 sec (9.0-12.0)
--- NOTE | 2020-10-08 17:52 | XR ---
EXAMINATION TYPE: XR chest 2V DATE OF EXAM: 10/08/2020 COMPARISON: 08/22/2018 HISTORY: Chest pain TECHNIQUE: 2 views FINDINGS: There is some mild elevation of the left diaphragm. There is no heart failure. Heart size i s normal. There are no hilar masses. There are chest leads. There is no evidence of pleural effusion. IMPRESSION: There is some mild chronic elevation of the left diaphragm. No acute lung disease. Normal heart. No adverse change compared to old exam.
[2020-10-08 18:39] VITALS: BP 112/60; PULSE 82; RESP 17
== END 2020-10-08 19:17 | disposition home or self-care (01) ==
LOC: EC 16:40
DX: R07.9 Chest pain, unspecified (principal); R06.02 Shortness of breath; R05 Cough; J44.9 Chronic obstructive pulmonary disease, unspecified; F17.200 Nicotine dependence, unspecified, uncomplicated; Z79.899 Other long term (current) drug therapy; Z79.51 Long term (current) use of inhaled steroids; Z88.5 Allergy status to narcotic agent; Z86.73 Personal history of transient ischemic attack (TIA), and cerebral infarction without residual deficits
CPT/HCPCS: 36415; 71046; 80053; 83735; 83880; 84484; 85025; 85610; 85730; 87635; 93005; 99285

== ENCOUNTER → 2021-08-16 | Outpatient (CLI) | payer MEDICARE, OTHER ==
--- NOTE | 2021-08-17 08:21 | CTL ---
EXAMINATION TYPE: CT Low Dose Lung DATE OF EXAM ORDERED: 08/16/2021 COMPARISON: 05/19/20 HISTORY: . Low Dose CT Lung Screening CT DLP: [address] CTDI: 2.22 mGy IV CONTRAST USED: None. SCREENING VISIT: First visit COMPARISON: None. TECHNIQUE: Low dose computed tomography scan was performed through the chest at 1 millimeter thick se ctions and reconstructed images in the coronal plane at [address] DIAGNOSTIC QUALITY: Satisfactory FINDINGS: LUNG NODULES: stable LUNGS: COPD: Severity: None Fibrosis: Severity:None Lymph nodes: None Other findings: None RIGHT PLEURAL SPACE: Effusion: None Calcification: None Thickening: None Pneumothorax: None LEFT PLEURAL SPACE: Effusion: None Calcification: None Thickening: None Pneumothorax: None HEART: Heart Size: Mildly enlarged Coronary calcification: Mild Pericardial effusion: None OTHER FINDINGS: Upper abdomen: Small hiatal hernia. Bony thorax: Degenerative changes Supraclavicular region: No significant abnormalityOther: No significant abnormalityI IMPRESSION: Benign FOLLOW UP CT CHEST RECOMMENDATION: Follow-up screening in one year CT LUNG RAD: LUNG RAD CATEGORY 2 benign
== END | disposition home or self-care (01) ==
LOC: RADCTMAIN 17:35
PROVIDERS: ATTEND Internal Medicine
DX: Z12.2 Encounter for screening for malignant neoplasm of respiratory organs (principal); F17.210 Nicotine dependence, cigarettes, uncomplicated
CPT/HCPCS: 71271

== ENCOUNTER → 2022-03-04 | Outpatient (CLI) | payer MEDICARE, OTHER ==
--- NOTE | 2022-03-09 08:15 | MM ---
Reason for exam: screening (asymptomatic). Last mammogram was performed 3 years and 8 months ago. History: Patient is postmenopausal and history of endometrial cancer. Benign core biopsy of the right breast. Physical Findings: A clinical breast exam by your physician is recommended on an annual basis and results should be correlated with mammographic findings. MG 3D Screening Mammo W/Cad Bilateral CC and MLO view(s) were taken. Prior study comparison: July 06, 2018, bilateral MG 3d screening mammo w/cad. March 16, 2016, bilateral MG screening mammo w CAD. There are scattered fibroglandular densities. Asymmetric breast tissue upper inner right breast 7cm from nipple. This finding is changed when compared with previous exams. ASSESSMENT: Incomplete: need additional imaging evaluation, BI-RAD 0 RECOMMENDATION: Ultrasound of the right breast. [facility] will attempt to contact patient to return for ultrasound.
== END | disposition home or self-care (01) ==
LOC: RADMAMWWP 16:13
PROVIDERS: ATTEND Family Medicine
DX: Z12.31 Encounter for screening mammogram for malignant neoplasm of breast (principal); Z78.0 Asymptomatic menopausal state; Z85.42 Personal history of malignant neoplasm of other parts of uterus
CPT/HCPCS: 77063; 77067

== ENCOUNTER → 2022-03-15 | Outpatient (CLI) | payer MEDICARE, OTHER ==
--- NOTE | 2022-03-16 08:58 | USB ---
Reason for exam: additional evaluation requested from abnormal screening. History: Patient is postmenopausal and history of endometrial cancer. Benign core biopsy of the right breast. Physical Findings: A clinical breast exam by your physician is recommended on an annual basis and results should be correlated with mammographic findings. US Breast Workup Limited RT Right limited breast ultrasound including focal area of concern, retroareolar and axilla demonstrates no cystic or solid lesion seen. Results were given to the patient verbally at the time of the exam. ASSESSMENT: Probably benign, BI-RAD 3 RECOMMENDATION: Follow-up diagnostic mammogram of the right breast in 6 months.
== END | disposition home or self-care (01) ==
LOC: RADUSWWP 14:20
PROVIDERS: ATTEND Family Medicine
DX: R92.8 Other abnormal and inconclusive findings on diagnostic imaging of breast (principal); Z78.0 Asymptomatic menopausal state; Z85.42 Personal history of malignant neoplasm of other parts of uterus

== ENCOUNTER → 2022-04-29 | Outpatient (CLI) | payer MEDICARE, OTHER ==
[2022-04-29 18:45] LABS: Basophils # (A) 0.05 X 10*3/uL (0.00-0.10); Basophils % (A) 0.7 %; Eosinophils % (A) 1.4 %; HGB 14.6 g/dL (12.0-15.0); Immature Grans, Automated 0.1 %; Lymphocytes # (A) 2.26 X 10*3/uL (0.90-5.00); Lymphocytes % (A) 30.6 %; MCH 29.7 pg (27.0-32.0); MCHC 31.1 g/dL (32.0-37.0); MCV 95.7 fL (80.0-97.0); Mean Platelet Volume 10.5 fL (9.5-12.2); Monocytes % (A) 9.5 %; NRBC Per 100 WBC 0 /100 WBCS (0.0-0.0); Neutrophils # (A) 4.26 X 10*3/uL (1.80-7.70); Neutrophils % (A) 57.7 %; Platelet Count 205 X 10*3/uL (140-440); RBC 4.91 X 10*6/uL (4.10-5.20); RDW 13.4 % (11.5-14.5); WBC 7.38 X 10*3/uL (4.50-10.00)
== END | disposition home or self-care (01) ==
LOC: LABPAT 09:14
PROVIDERS: ATTEND Obstetrics & Gynecology
DX: Z01.812 Encounter for preprocedural laboratory examination (principal); R87.613 High grade squamous intraepithelial lesion on cytologic smear of cervix (HGSIL)
CPT/HCPCS: 36415; 85025

== ENCOUNTER 2022-05-05 10:43 | Emergency (ER) | payer MEDICARE, OTHER ==
[2022-05-05 11:07] VITALS: BP 102/61; PULSE 88; RESP 24; TEMP 97.9
[2022-05-05] MEDS ORDERED: KETOROLAC 15 MG/ML 1 ML VIAL IM STA (12:41)
--- NOTE | 2022-05-05 13:01 | ED ---
General Adult HPI - General Chief complaint: Extremity Injury, Lower Stated complaint: R ankle Pain Time Seen by Provider: 05/05/22 12:40 Source: patient, RN notes reviewed, old records reviewed Mode of arrival: ambulatory Limitations: no limitations - History of Present Illness Initial comments: This is a 62-year-old female who presents emergency Department with a past history of a stroke with residual deficit on the right side. Patient states her right ankle has been hurting on the lateral aspect for 2 months. Patient states she has an appointment today at 2:30 with orthopedics she didn't want to wait so she came to the emergency department. Patient states his been no injury no change in footwear. Patient states his been no trauma prior to or since the original pain began 2 months ago. Patient denies any swelling or fever chills or erythema - Related Data Home Medications Medication Instructions Recorded Confirmed Fluticasone/Vilanterol [Breo 1 inhalation INHALATION RT-DAILY 04/18/17 10/08/20 Ellipta 200-25 Mcg INH] Gabapentin [Neurontin] 600 mg PO QID PRN 04/18/17 10/08/20 Hydrocodone/Acetaminophen [[place] 1 tab PO TID PRN 04/18/17 10/08/20 7.5-325] Ipratropium/Albuterol Sulfate 1 - 2 puff INHALATION QID PRN 04/18/17 10/08/20 [Combivent Respimat Inhaler] traZODone HCL 150 mg PO HS 04/18/17 10/08/20 Albuterol Sulfate [Proair Hfa] 1 - 2 puff INHALATION Q6HR PRN 08/25/20 10/08/20 Mirabegron [Myrbetriq] 25 mg PO DAILY 08/25/20 10/08/20 Baclofen 5 - 10 mg PO TID PRN 10/08/20 10/08/20 Jsasxgvshg-Lwfimiqyyemfu-Lvjtkopp 1 tab PO ONCE PRN 10/08/20 10/08/20 (Unknown Strength) Previous Rx's Medication Instructions Recorded Omeprazole 40 mg PO DAILY #14 capsule. 09/19/18 Allergies Allergy/AdvReac Type Severity Reaction Status Date / Time codeine Allergy Severe Rapid Verified 05/05/22 11:07 Heart Rate, CHEST PAIN Review of Systems ROS Statement: Those systems with pertinent positive or pertinent negative responses have been documented in the HPI. ROS Other: All systems not noted in ROS Statement are negative. 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 Problems with speech. Back pain. History of Any Multi-Drug Resistant Organisms: None Reported Past Surgical History: Cholecystectomy Additional Past Surgical History / Comment(s): REPAIR OF HOLE IN HEART". 04-19-2017 bladder sling, anterior vaginal repair Past Anesthesia/Blood Transfusion Reactions: No Reported Reaction Past Psychological History: No Psychological Hx Reported Smoking Status: Current every day smoker Past Alcohol Use History: None Reported Past Drug Use History: None Reported - Past Family History Mother Family Medical History: Cancer General Exam - General Exam Comments Initial Comments: GENERAL: Patient is well-developed and well-nourished. Patient is nontoxic and well- hydrated and is in no acute distress. ENT: Neck is soft and supple. No significant lymphadenopathy is noted. Oropharynx is clear. Moist mucous membranes. Neck has full range of motion without eliciting any pain. EYES: The sclera were anicteric and conjunctiva were pink and moist. Extraocular movements were intact and pupils were equal round and reactive to light. Eyelids were unremarkable. SKIN: Skin is clear with no lesions or rashes and otherwise unremarkable. NEUROLOGIC: Patient is alert and oriented x3. Cranial nerves II through XII are grossly intact. Motor and sensory are also intact. Normal speech, volume and content. Symmetrical smile. MUSCULOSKELETAL: Ankle is tender anterior to the right lateral malleolus Normal psychiatric evaluation. Limitations: no limitations Course Vital Signs 05/05/22 11:05 Temperature 97.9 F Pulse Rate 88 Respiratory 24 Rate Blood Pressure 102/61 O2 Sat by Pulse 93 L Oximetry Medical Decision Making - Medical Decision Making Patient received Toradol emergency department. Patient's x-ray showed no acute abnormality. Patient has an orthopedic appointment today at 2:30 Disposition Clinical Impression: Chronic pain of right ankle Disposition: HOME SELF-CARE Condition: Good Instructions (If sedation given, give patient instructions): Ankle Sprain (ED) Is patient prescribed a controlled substance at d/c from ED?: No Referrals: Ángel Giron MD [Primary Care Provider] - 1-2 days Time of Disposition: 13:10
--- NOTE | 2022-05-05 13:04 | XR ---
EXAMINATION TYPE: XR ankle complete RT DATE OF EXAM: 05/05/2022 COMPARISON: 03/12/2016 HISTORY: 62-year-old female with ankle pain TECHNIQUE: 3 views FINDINGS: Mild anterior and lateral sided soft tissue swelling. Small plantar heel spur. No acute fra cture, subluxation, or dislocation seen. IMPRESSION: Mild anterior and lateral sided soft tissue swelling. No acute osseous abnormality seen. If there was trauma and there is concern for an occult osseous injury, follow-up in 10-14 days.
== END 2022-05-05 13:16 | disposition home or self-care (01) ==
LOC: EC 10:43
DX: G89.29 Other chronic pain (principal); M25.571 Pain in right ankle and joints of right foot; F17.200 Nicotine dependence, unspecified, uncomplicated; Z88.5 Allergy status to narcotic agent; Z79.51 Long term (current) use of inhaled steroids
CPT/HCPCS: 73610; 99283; 96372; J1885

== ENCOUNTER 2022-05-17 08:30 | Day surgery (SDC) | payer MEDICARE, OTHER ==
[2022-05-13 11:55] VITALS: BMI 21.4
[~2022-05-17 08:30] MED LIST changes: +DEXAMETHASONE SOD PHOSPHATE 4 MG/ML 1 ML VIAL IV ONE; +HYDROmorphone 0.5 MG/0.5 ML SYRINGE IVP PRN; -HYDROmorphone 1 MG/ML 1 ML SYRINGE IVP PRN; -LACTATED RINGERS 1,000 ML IV SCH; +LIDOCAINE 1% (10MG/ML) FOR IV START INTRADERMA PRN; +MIDAZOLAM 2 MG/2 ML VIAL IV PRN; +ONDANSETRON 4 MG/2 ML VIAL IVP ONE; +Pre Op ABX Message 1 EACH MISC MISCELLANE ONE
[2022-05-17] MEDS: LACTATED RINGERS 1,000 ML IV SCH ×2 (09:11→09:56)
[2022-05-17] MEDS ORDERED: SUCCINYLCHOLINE CHLORIDE 100 MG/5 ML SYR IV ONE (09:53)
[2022-05-17] MEDS ORDERED: fentaNYL (PF) 50 MCG/ML 2 ML AMP ONE (09:53)
[2022-05-17] MEDS ORDERED: LIDOCAINE 2% INJ 20 MG/ML (2 ML VIAL) ONE (09:53)
[2022-05-17] MEDS ORDERED: PROPOFOL 10 MG/ML 20 ML VIAL IV ONE (09:53)
[2022-05-17] MEDS ORDERED: PHENYLEPHRINE-0.9% NACL SYG 1,000 MCG/10 ML SYRINGE ONE (09:53)
[2022-05-17] MEDS ORDERED: MIDAZOLAM 2 MG/2 ML VIAL ONE (09:53)
[2022-05-17] MEDS ORDERED: IODINE/POTASS IOD (LUGOLS) BOTTLE TOPICAL ONE (10:13)
[2022-05-17] MEDS ORDERED: LIDOCAINE 1%-EPI 1:100,000 20 ML VIAL SUBMUCOSAL ONE (10:13)
--- NOTE | 2022-05-17 10:34 | P.OP ---
Date of Procedure: 05/17/22 Preoperative Diagnosis: HGSIL Postoperative Diagnosis: Same Procedure(s) Performed: Cervical cold knife cone biopsy Anesthesia: GETA Surgeon: Amada Benavides Estimated Blood Loss (ml): 10 IV fluids (ml): 500 Urine output (ml): 25 Pathology: other (Cervical biopsy) Condition: stable Disposition: PACU Indications for Procedure: High grade LUCY on recent cervical colposcopic biopsies. Operative Findings: Severe vaginal and cervical atrophy. Evidence of probable anterior colporrhaphy with scarring of the anterior vaginal mucosa and cervix. Cervix was free of any gross visible lesions. Transformation zone was not visible. Cervix was small and flush with the vaginal mucosa. Description of Procedure: After the patient and her family were met in the preoperative holding area and all questions were answered, she was taken to the operating room where anesthetic was administered without incident. Appropriate timeout procedure was undertaken. She was positioned, prepped and draped in the dorsal lithotomy position. Bladder was drained for approximately 25 mL of clear urine. Weighted speculum was placed in the vagina and the above findings were noted. The cervix was very small and essentially flush with the vaginal mucosa especially anteriorly. There is a vertical anterior scar extending from below the urethra to the level of the cervix at the 12 o'clock position consistent with probable previous anterior colporrhaphy. The cervix was grasped with an Allis clamp and was hypermobile and approximately dime-sized. The overall solution was applied however there was no transformation zone noted. Severe atrophy is noted. Stay sutures were placed at the 3 and 9 o'clock position. The 11 blade scalpel was utilized to take a small conical shaped cervical biopsy with extreme care taken based on the unusual anatomy and atrophy. Following removal of the biopsy Bovie electrocautery was utilized to cauterize the base and edges of the biopsy. Surgicel powder was then placed at the biopsy base. Hemostasis was noted. Stay sutures were removed. The area was observed and noted to be hemostatic. Instruments were then removed from the vagina and the patient was awoken from anesthetic without incident. She was transported to recovery in good condition. All counts were correct.
[2022-05-17 10:49] VITALS: TEMP 97.2
[2022-05-17 11:19] VITALS: RESP 18
[2022-05-17 11:32] VITALS: PULSE 76
[2022-05-17 11:35] VITALS: BP 120/70
== END 2022-05-17 11:57 | disposition home or self-care (01) ==
LOC: OR 08:30
PROVIDERS: ATTEND Obstetrics & Gynecology
DX: D06.0 Carcinoma in situ of endocervix (principal); F41.9 Anxiety disorder, unspecified; J45.909 Unspecified asthma, uncomplicated; J43.9 Emphysema, unspecified; Z86.73 Personal history of transient ischemic attack (TIA), and cerebral infarction without residual deficits; E78.5 Hyperlipidemia, unspecified; K21.9 Gastro-esophageal reflux disease without esophagitis; G25.81 Restless legs syndrome; Z87.442 Personal history of urinary calculi; Z90.49 Acquired absence of other specified parts of digestive tract; Z98.51 Tubal ligation status; Z79.899 Other long term (current) drug therapy; Z88.6 Allergy status to analgesic agent; Z82.49 Family history of ischemic heart disease and other diseases of the circulatory system; Z82.3 Family history of stroke; Z80.1 Family history of malignant neoplasm of trachea, bronchus and lung; F17.200 Nicotine dependence, unspecified, uncomplicated; Z88.5 Allergy status to narcotic agent; Z79.51 Long term (current) use of inhaled steroids
CPT/HCPCS: 57520; 88307; J2250; J1100; J2405; J3010; J2370; J0330; J2704; J2001

== ENCOUNTER 2022-06-20 16:45 | Emergency (ER) | payer MEDICARE, OTHER ==
--- NOTE | 2022-06-20 19:14 | XR ---
EXAMINATION TYPE: XR chest 2V DATE OF EXAM: 06/20/2022 COMPARISON: 10/08/2020 HISTORY: Short of breath TECHNIQUE: FINDINGS: Heart and mediastinum are normal. Lungs are clear. Diaphragm is normal. There is some coars ening of interstitial markings at the lung bases. Bony thorax is intact. IMPRESSION: No active cardiopulmonary disease. Minimal fibrotic changes at the lung bases. No adverse change.
--- NOTE | 2022-06-20 19:17 | ED ---
URI HPI - General Chief Complaint: Upper Respiratory Infection Stated Complaint: fever, SOB Time Seen by Provider: 06/20/22 17:50 Source: patient, RN notes reviewed Mode of arrival: ambulatory Limitations: no limitations - History of Present Illness Initial Comments: 62-year-old female history of COPD and asthma who states she had the onset yesterday of some shortness of breath cough he now has exertional dyspnea today. She is concerned that she may have COVID-19. No overt chest pain no other symptoms reported at this time other than fatigue. MD Complaint: fever, cough, other - Related Data Home Medications Medication Instructions Recorded Confirmed Fluticasone/Vilanterol [Breo 1 inhalation INHALATION RT-DAILY 04/18/17 05/13/22 Ellipta 200-25 Mcg INH] Gabapentin [Neurontin] 600 mg PO QID PRN 04/18/17 05/17/22 Ipratropium/Albuterol Sulfate 1 - 2 puff INHALATION QID PRN 04/18/17 05/17/22 [Combivent Respimat Inhaler] traZODone HCL 150 mg PO HS 04/18/17 05/17/22 Albuterol Sulfate [Proair Hfa] 1 - 2 puff INHALATION Q6HR PRN 08/25/20 05/17/22 Mirabegron [Myrbetriq] 25 mg PO DAILY 08/25/20 05/17/22 Fluticasone/Umeclidin/Vilanter 1 inhalation INHALATION DAILY 05/13/22 05/17/22 [Trelegy Ellipta 100-62.5-25] Omeprazole 40 mg PO DAILY PRN 05/13/22 05/17/22 Allergies Allergy/AdvReac Type Severity Reaction Status Date / Time codeine Allergy Severe Rapid Verified 06/20/22 17:35 Heart Rate, CHEST PAIN Review of Systems ROS Statement: Those systems with pertinent positive or pertinent negative responses have been documented in the HPI. ROS Other: All systems not noted in ROS Statement are negative. 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 Problems with speech. Back pain. History of Any Multi-Drug Resistant Organisms: None Reported Past Surgical History: Cholecystectomy Additional Past Surgical History / Comment(s): REPAIR OF HOLE IN HEART". 04-19-2017 bladder sling, anterior vaginal repair Past Anesthesia/Blood Transfusion Reactions: No Reported Reaction Past Psychological History: No Psychological Hx Reported Smoking Status: Current every day smoker Past Alcohol Use History: None Reported Past Drug Use History: Cocaine - Past Family History Mother Family Medical History: Cancer General Exam - General Exam Comments Initial Comments: This is a well-developed well-nourished awake alert oriented 4 female Limitations: no limitations General appearance: alert, in no apparent distress Head exam: Present: atraumatic, normocephalic, normal inspection Eye exam: Present: normal appearance, PERRL, EOMI. Absent: scleral icterus, conjunctival injection, periorbital swelling ENT exam: Present: normal exam, mucous membranes moist Neck exam: Present: normal inspection. Absent: tenderness, meningismus, lymphadenopathy Respiratory exam: Present: normal lung sounds bilaterally. Absent: respiratory distress, wheezes, rales, rhonchi, stridor Cardiovascular Exam: Present: normal rhythm, tachycardia, normal heart sounds. Absent: systolic murmur, diastolic murmur, rubs, gallop, clicks GI/Abdominal exam: Present: soft, normal bowel sounds. Absent: distended, tenderness, guarding, rebound, rigid Extremities exam: Present: normal inspection, full ROM, normal capillary refill. Absent: tenderness, pedal edema, joint swelling, calf tenderness Back exam: Present: normal inspection Neurological exam: Present: alert, oriented X3, CN II-XII intact Psychiatric exam: Present: normal affect, normal mood Skin exam: Present: warm, dry, intact, normal color. Absent: rash Course Vital Signs 06/20/22 06/20/22 17:31 22:12 Temperature 100.3 F H 99.3 F Pulse Rate 106 H 88 Respiratory 20 16 Rate Blood Pressure 111/73 102/76 O2 Sat by Pulse 93 L 95 Oximetry Medical Decision Making - Medical Decision Making The patient did receive antibiotic for COVID-19 and does feel well. She will be discharged - Lab Data Result diagrams: 06/20/22 19:27 06/20/22 19:27 Lab Results 06/20/22 06/20/22 06/20/22 Range/Units 17:36 19:27 19:27 WBC 7.3 (3.8-10.6) k/uL RBC 4.93 (3.80-5.40) m/uL Hgb 14.9 (11.4-16.0) gm/dL Hct 45.7 (34.0-46.0) % MCV 92.7 (80.0-100.0) fL MCH 30.2 (25.0-35.0) pg MCHC 32.6 (31.0-37.0) g/dL RDW 13.5 (11.5-15.5) % Plt Count 216 (150-450) k/uL MPV 7.8 Neutrophils % 85 % Lymphocytes % 4 % Monocytes % 7 % Eosinophils % 2 % Basophils % 1 % Neutrophils # 6.3 (1.3-7.7) k/uL Lymphocytes # 0.3 L (1.0-4.8) k/uL Monocytes # 0.5 (0-1.0) k/uL Eosinophils # 0.1 (0-0.7) k/uL Basophils # 0.1 (0-0.2) k/uL Sodium 133 L (137-145) mmol/L Potassium 3.9 (3.5-5.1) mmol/L Chloride 100 (98-107) mmol/L Carbon Dioxide 27 (22-30) mmol/L Anion Gap 6 mmol/L BUN 5 L (7-17) mg/dL Creatinine 0.62 (0.52-1.04) mg/dL Est GFR (CKD-EPI)AfAm >90 (>60 ml/min/1.73 sqM) Est GFR (CKD-EPI)NonAf >90 (>60 ml/min/1.73 sqM) Glucose 93 (74-99) mg/dL Calcium 9.1 (8.4-10.2) mg/dL Magnesium 1.8 (1.6-2.3) mg/dL Total Bilirubin 0.3 (0.2-1.3) mg/dL AST 18 (14-36) U/L ALT 10 (4-34) U/L Alkaline Phosphatase 73 (38-126) U/L Creatine Kinase 63 (30-135) U/L Troponin I (0.000-0.034) ng/mL Total Protein 7.0 (6.3-8.2) g/dL Albumin 4.2 (3.5-5.0) g/dL Coronavirus (PCR) Detected A (Not Detectd) 06/20/22 Range/Units 19:27 WBC (3.8-10.6) k/uL RBC (3.80-5.40) m/uL Hgb (11.4-16.0) gm/dL Hct (34.0-46.0) % MCV (80.0-100.0) fL MCH (25.0-35.0) pg MCHC (31.0-37.0) g/dL RDW (11.5-15.5) % Plt Count (150-450) k/uL MPV Neutrophils % % Lymphocytes % % Monocytes % % Eosinophils % % Basophils % % Neutrophils # (1.3-7.7) k/uL Lymphocytes # (1.0-4.8) k/uL Monocytes # (0-1.0) k/uL Eosinophils # (0-0.7) k/uL Basophils # (0-0.2) k/uL Sodium (137-145) mmol/L Potassium (3.5-5.1) mmol/L Chloride (98-107) mmol/L Carbon Dioxide (22-30) mmol/L Anion Gap mmol/L BUN (7-17) mg/dL Creatinine (0.52-1.04) mg/dL Est GFR (CKD-EPI)AfAm (>60 ml/min/1.73 sqM) Est GFR (CKD-EPI)NonAf (>60 ml/min/1.73 sqM) Glucose (74-99) mg/dL Calcium (8.4-10.2) mg/dL Magnesium (1.6-2.3) mg/dL Total Bilirubin (0.2-1.3) mg/dL AST (14-36) U/L ALT (4-34) U/L Alkaline Phosphatase (38-126) U/L Creatine Kinase (30-135) U/L Troponin I <0.012 (0.000-0.034) ng/mL Total Protein (6.3-8.2) g/dL Albumin (3.5-5.0) g/dL Coronavirus (PCR) (Not Detectd) - EKG Data -: EKG Interpreted by Me EKG shows normal: sinus rhythm EKG Comments: EKG shows sinus rhythm at 99 VT interval 113 QRS duration 94 QT since QTC 340/396 Right bundle-branch block no acute ST-T wave changes - Radiology Data Radiology results: report reviewed (Image reviewed as well as report no acute findings.), image reviewed Disposition Clinical Impression: COVID-19 Disposition: HOME SELF-CARE Condition: Good Instructions (If sedation given, give patient instructions): Social Distancing Guidelines for COVID-19 (ED), How to Recover from COVID-19 at Home (ED), Face Coverings (Masks) and COVID-19 (ED), COVID-19 (Coronavirus Disease 2019) (ED) Is patient prescribed a controlled substance at d/c from ED?: No Referrals: Ángel Giron MD [Primary Care Provider] - 1-2 days Decision Date: 06/20/22 Decision Time: 22:18
[2022-06-20] MEDS ORDERED: BEBTELOVIMAB (EUA) 175 MG/2 ML VIAL IV ONE (19:30)
[2022-06-20 19:35] LABS: Basophils # (A) 0.1 k/uL (0-0.2); Basophils % (A) 1 %; Eosinophils # (A) 0.1 k/uL (0-0.7); Eosinophils % (A) 2 %; HCT 45.7 % (34.0-46.0); HGB 14.9 gm/dL (11.4-16.0); Lymphocytes # (A) 0.3 k/uL (1.0-4.8); Lymphocytes % (A) 4 %; MCH 30.2 pg (25.0-35.0); MCHC 32.6 g/dL (31.0-37.0); MCV 92.7 fL (80.0-100.0); Mean Platelet Volume 7.8; Monocytes # (A) 0.5 k/uL (0-1.0); Monocytes % (A) 7 %; Neutrophils # (A) 6.3 k/uL (1.3-7.7); Neutrophils % (A) 85 %; Platelet Count 216 k/uL (150-450); RBC 4.93 m/uL (3.80-5.40); RDW 13.5 % (11.5-15.5); WBC 7.3 k/uL (3.8-10.6)
[2022-06-20] MEDS ORDERED: ACETAMINOPHEN TAB 325 MG TAB PO STA (19:37)
[2022-06-20 19:51] LABS: ALT 10 U/L (4-34); AST 18 U/L (14-36); African American GFR (CKD) >90 (>60 ml/min/1.73 sqM); Albumin 4.2 g/dL (3.5-5.0); Alkaline Phosphatase 73 U/L (38-126); Anion Gap 6 mmol/L; Blood Urea Nitrogen 5 mg/dL (7-17); Calcium 9.1 mg/dL (8.4-10.2); Carbon Dioxide 27 mmol/L (22-30); Chloride 100 mmol/L (98-107); Creatine Kinase 63 U/L (30-135); Glucose 93 mg/dL (74-99); Magnesium 1.8 mg/dL (1.6-2.3); Non-African American GFR(CKD) >90 (>60 ml/min/1.73 sqM); Potassium 3.9 mmol/L (3.5-5.1); Sodium 133 mmol/L (137-145); Total Bilirubin 0.3 mg/dL (0.2-1.3)
[2022-06-20 22:13] VITALS: BP 102/76; PULSE 88; RESP 16; TEMP 99.3
== END 2022-06-20 22:35 | disposition home or self-care (01) ==
LOC: EC 16:45
DX: U07.1 COVID-19 (principal); J45.909 Unspecified asthma, uncomplicated; J44.9 Chronic obstructive pulmonary disease, unspecified; Z86.73 Personal history of transient ischemic attack (TIA), and cerebral infarction without residual deficits; F17.200 Nicotine dependence, unspecified, uncomplicated; Z88.5 Allergy status to narcotic agent; Z79.51 Long term (current) use of inhaled steroids; Z79.899 Other long term (current) drug therapy
CPT/HCPCS: 36415; 93005; 80053; 82550; 83735; 84484; 85025; 87635; 71046; 99285; Q0222

== ENCOUNTER → 2022-10-31 | Outpatient (CLI) | payer MEDICARE, OTHER ==
--- NOTE | 2022-10-31 15:09 | MM ---
Reason for Exam: Follow-up at short interval from prior study. Last screening mammogram was performed 8 month(s) ago. Patient History: Menarche at age 13. First Full-Term at age 22. Postmenopausal. Endometrial cancer. Benign Core Biopsy on the right side. Risk Values: Chantel 5 year model risk: 1.6%. NCI Lifetime model risk: 7.5%. Prior Study Comparison: 03/16/2016 Bilateral Screening Mammogram, [facility]. 07/06/2018 Bilateral Screening Mammogram, [facility]. 03/04/2022 Bilateral Screening Mammogram, [facility]. Tissue Density: Right: There are scattered fibroglandular densities. Findings: Analyzed By CAD. Right breast biopsy clip. Area of concern in the right breast is no longer visualized. This suggests prior prominent fibroglandular tissue. Overall Assessment: Negative, BI-RAD 1 Management: Screening Mammogram of both breasts in 1 year. A clinical breast exam by your physician is recommended on an annual basis and results should be correlated with mammographic findings. This exam should not preclude additional follow-up of suspicious palpable abnormalities. Results were given to the patient verbally at the time of exam. Electronically signed and approved by: Kamran Flood DO
== END | disposition home or self-care (01) ==
LOC: RADMAMWWP 14:39
PROVIDERS: ATTEND Family Medicine
DX: R92.8 Other abnormal and inconclusive findings on diagnostic imaging of breast (principal); Z78.0 Asymptomatic menopausal state; Z98.890 Other specified postprocedural states
CPT/HCPCS: 77065; G0279; 77061

== ENCOUNTER → 2022-11-02 | Outpatient (CLI) | payer MEDICARE, OTHER ==
--- NOTE | 2022-11-02 22:13 | CTL ---
EXAMINATION TYPE: CT Low Dose Lung DATE OF EXAM: 11/02/2022 5:17 PM CLINICAL INDICATION:Female, 62 years old with history of Z87.891 Personal history of nicotine depende nce; Current smoker x35 years, 1 pack a day. , history of tobacco use. COMPARISON: 08/17/2021 TECHNIQUE: Multiple axial non-contrast scans were obtained from approximately the lung apices through the upper abdomen. Coronal and sagittal reformatted images were obtained. Low dose technique was uti lized. CT DLP: 68.10 mGycm, Automated exposure control for dose reduction was used. CT Contrast: Contrast used: None Oral contrast used: None FINDINGS: ======== Lack of intravenous contrast and low dose technique limits the evaluation of the vascular and soft ti ssue structures. LUNGS: No evidence of emphysema or pulmonary fibrosis. No evidence of focal consolidation, pneumothor ax or pleural effusion. There is centrilobular emphysema changes throughout the lungs. Nodules: RUL: None. RML: None. RLL: Multiple subcentimeter pulmonary nodules the largest measuring up to 4 mm. Similar to prior LORELEI: None. LLL: Multiple subcentimeter nodules the largest measuring up to 3 mm. Similar to prior AIRWAY: Patent and unremarkable. HEART: Size within normal limits. Coronary artery atherosclerosis. Atrial septal occlusion device pre sent. MEDIASTINUM: No gross evidence of adenopathy. VASCULATURE: No aortic aneurysm. Atherosclerosis of the arterial vasculature. MUSCULOSKELETAL: No acute osseous abnormalities SOFT TISSUES/LYMPH NODES: Unremarkable. LOWER NECK: No significant findings. UPPER ABDOMEN: Gallbladder surgically absent. IMPRESSION: 1. Stable support sub 5 mm pulmonary nodules. 2. Mild centrilobular emphysema changes. CT LUNG RAD AND CT CHEST RECOMMENDATION: Lung-Rad 2 Benign Appearance or Behavior: Continue annual sc reening with LDCT in 12 months. S Modifier (other clinically significant findings): None Recommend smoking cessation (if current smoker), or continuation of smoking cessation (if prior smoke r). Annual screening for lung cancer with low-dose computed tomography is recommended in adults ages 55 to 77 years who have a 30 pack-year smoking history and currently smoke or have quit within the pa st 15 years. Screening should be discontinued once a person has not smoked for 15 years or develops a health problem that substantially limits life expectancy or the ability or willingness to have curat preeti lung surgery.
== END | disposition home or self-care (01) ==
LOC: RADCTMAIN 16:52
PROVIDERS: ATTEND Internal Medicine
DX: Z12.2 Encounter for screening for malignant neoplasm of respiratory organs (principal); J43.2 Centrilobular emphysema; R91.8 Other nonspecific abnormal finding of lung field; Z87.891 Personal history of nicotine dependence
CPT/HCPCS: 71271

== ENCOUNTER → 2024-06-20 | Outpatient (CLI) | payer MEDICARE, OTHER ==
--- NOTE | 2024-06-20 23:39 | CTL ---
EXAMINATION TYPE: CT Low Dose Lung DATE OF EXAM ORDERED: 06/20/2024 HISTORY: 64-year-old female Z12.2, lung cancer screening, F17.210, current smoker with 100 pack-year history. Lung cancer screening CT DLP: 92.[address] CTDI: 2.9 mGy Automated exposure control for dose reduction was used. SCREENING VISIT: Annual follow-up COMPARISON: 11/02/2022 TECHNIQUE: Low dose computed tomography scan was performed through the chest at 1 mm thick sections a nd reconstructed images in multiple planes at 1 mm and [address] DIAGNOSTIC QUALITY: Satisfactory FINDINGS: 7 mm hypodense nodule right lobe thyroid gland. Should Heart normal size with trace anterior pericardial effusion, unchanged. PFO closure device noted. LAD and RCA coronary calcifications . Aorta normal caliber with mild atherosclerotic arch calcifications and conventional arch vessel branching anatomy. No thoracic lymphadenopathy by CT size criteria. There is moderate diffuse bronchial wall thickening. Moderate emphysematous change. Redemonstrated pl eural-parenchymal scarring at the bilateral lower lungs. No consolidation or pleural effusion. Clustered calcified granulomas in the periphery of the left lower lobe are unchanged. Additional clus tered calcified granulomas at the right base are unchanged. A couple pulmonary nodules right lower lobe measuring 5 mm axial image 159 and 3 mm axial image 163 a ppear new. Tiny hiatal hernia. 1.7 cm low-density nodule of the left adrenal gland most compatible with a benign adrenal adenoma, unchanged from 2021. Cholecystectomy. Accentuated lower thoracic kyphosis with mild degenerative disc disease. IMPRESSION: 1. LungRADS 3, probably benign; a couple pulmonary nodules in the right lower lobe measuring 3 mm and 5 mm appear new. Reassess at short interval follow-up. 2. COPD with moderate emphysema. Pleural parenchymal scarring redemonstrated at the lower lungs as we ll as evidence of prior granulomatous disease. 3. Tiny hiatal hernia and stable 1.7 cm left adrenal adenoma. CT LUNG RAD AND CT CHEST RECOMMENDATION: Lung-Rad 3 Probably Benign: 6 month follow-up LDCT. S Modifier (other clinically significant findings): None
== END | disposition home or self-care (01) ==
LOC: RADCTMAIN 13:16
PROVIDERS: ATTEND Internal Medicine
DX: Z12.2 Encounter for screening for malignant neoplasm of respiratory organs (principal); F17.210 Nicotine dependence, cigarettes, uncomplicated; J43.9 Emphysema, unspecified; K44.9 Diaphragmatic hernia without obstruction or gangrene
CPT/HCPCS: 71271

== ENCOUNTER → 2025-02-28 | Outpatient (CLI) | payer MEDICARE, OTHER ==
[2025-02-28 18:48] LABS: Basophils # (A) 0.07 X 10*3/uL (0.00-0.10); Basophils % (A) 0.6 %; Eosinophils # (A) 0.22 X 10*3/uL (0.04-0.35); HCT 47.6 % (37.2-46.3); HGB 15.1 g/dL (12.0-15.0); Lymphocytes # (A) 3.13 X 10*3/uL (0.90-5.00); Lymphocytes % (A) 28.7 %; MCH 30.2 pg (27.0-32.0); MCHC 31.7 g/dL (32.0-37.0); MCV 95.2 FL (80.0-97.0); Mean Platelet Volume 10.3 FL (9.5-12.2); Monocytes # (A) 0.55 X 10*3/uL (0.20-1.00); NRBC Per 100 WBC 0 X 10*3/uL (0.00-0.01); Neutrophils # (A) 6.91 X 10*3/uL (1.80-7.70); Neutrophils % (A) 63.4 %; Platelet Count 233 X 10*3/uL (140-440); RDW 13.7 % (11.5-14.5); WBC 10.91 X 10*3/uL (4.50-10.00)
[2025-02-28 21:08] LABS: ALT 13 U/L (8-44); AST 18 U/L (13-35); Albumin 4.1 g/dL (3.8-4.9); Albumin/Globulin Ratio 1.52 Ratio (1.60-3.17); Alkaline Phosphatase 84 U/L (41-126); BUN/Creat Ratio 14.29 Ratio (12.00-20.00); Calcium 9.5 mg/dL (8.7-10.3); Carbon Dioxide 26.6 mmol/L (21.6-31.8); Chloride 105 mmol/L (96-109); Globulin 2.7 g/dL (1.6-3.3); Glucose 100 mg/dL (70-110); LDL Cholesterol,Calculated 67.7 mg/dL (0.0-131.0); Potassium 4.3 mmol/L (3.5-5.5); Sodium 141 mmol/L (135-145); T4, Free (Free Thyroxine) 1.26 ng/dL (0.80-1.80); Total Bilirubin 0.3 mg/dL (0.3-1.2); Total Protein 6.8 g/dL (6.2-8.2)
== END | disposition home or self-care (01) ==
LOC: LABWHC1 12:56
PROVIDERS: ATTEND Student in an Organized Health Care Education/Training Program
DX: E78.00 Pure hypercholesterolemia, unspecified (principal); E55.9 Vitamin D deficiency, unspecified; R73.03 Prediabetes
CPT/HCPCS: 36415; 80053; 80061; 82306; 83036; 84439; 84443; 85025

== ENCOUNTER → 2025-05-08 | Outpatient (CLI) | payer MEDICARE, OTHER ==
[2025-05-08 19:26] LABS: Basophils # (A) 0.07 X 10*3/uL (0.00-0.10); Basophils % (A) 0.6 %; Eosinophils # (A) 0.09 X 10*3/uL (0.04-0.35); Eosinophils % (A) 0.7 %; HCT 48.2 % (37.2-46.3); HGB 15.4 g/dL (12.0-15.0); Lymphocytes % (A) 29.1 %; MCH 30.6 pg (27.0-32.0); MCV 95.6 FL (80.0-97.0); Monocytes # (A) 0.65 X 10*3/uL (0.20-1.00); Monocytes % (A) 5.3 %; NRBC Per 100 WBC 0 X 10*3/uL (0.00-0.01); Neutrophils # (A) 7.89 X 10*3/uL (1.80-7.70); Neutrophils % (A) 63.7 %; Platelet Count 237 X 10*3/uL (140-440); RBC 5.04 X 10*6/uL (4.10-5.20); RDW 13.6 % (11.5-14.5); WBC 12.38 X 10*3/uL (4.50-10.00)
[2025-05-08 19:51] LABS: BUN/Creat Ratio 16.67 Ratio (12.00-20.00); Carbon Dioxide 28.4 mmol/L (21.6-31.8); Chloride 102 mmol/L (96-109); Glucose 89 mg/dL (70-110); Potassium 4.2 mmol/L (3.5-5.5); Sodium 141 mmol/L (135-145)
[2025-05-08 19:52] LABS: ALT 15 U/L (8-44); AST 13 U/L (13-35); Alkaline Phosphatase 81 U/L (41-126); Calcium 9.1 mg/dL (8.7-10.3); Globulin 2.5 g/dL (1.6-3.3); Total Bilirubin 0.3 mg/dL (0.3-1.2); Total Protein 6.5 g/dL (6.2-8.2)
[2025-05-08 22:15] LABS: Appearance,Urine Clear (Clear); Bilirubin,Urine Negative (Negative); Blood,Urine Negative (Negative); Color,Urine Yellow (Yellow); Ketones,Urine Negative (Negative); Nitrite,Urine Negative (Negative); Specific Gravity,Urine 1.017 (1.001-1.030); Urobilinogen,Urine 0.2 E.U./DL
[2025-05-08 22:22] LABS: Bacteria,Urine None Seen (None Seen)
== END | disposition home or self-care (01) ==
LOC: LABWHC1 14:38
PROVIDERS: ATTEND Urology
DX: N39.46 Mixed incontinence (principal)
CPT/HCPCS: 36415; 80053; 81001; 85025; 87086; 93005

== ENCOUNTER → 2025-05-20 | Outpatient (CLI) | payer MEDICARE, OTHER ==
--- NOTE | 2025-05-20 15:14 | CT ---
EXAMINATION TYPE: CT abdomen pelvis w con CT DLP: 736.30 mGycm, Automated exposure control for dose reduction was used. DATE OF EXAM: 05/20/2025 8:16 AM COMPARISON: CT abdomen pelvis 07/06/2020 CLINICAL INDICATION:Female, 65 years old with history of R19.8 OTH SYMPTOMS AND SIGNS INVOLVING THE D GSTV S; Umbilical drainage, abdominal wall abscess TECHNIQUE: Standard CT of the abdomen and pelvis following the administration of 100 cc of Isovue 3 00 IV contrast material and oral contrast. Coronal and sagittal reformats were performed. FINDINGS: LOWER CHEST: Right lower lobe calcified granuloma. Mild bilateral lower lobe subsegmental atelectasis . Atrial septal occlusion device. Mild cortical calcifications. No significant pericardial effusion. ABDOMEN LIVER: Mildly enlarged measuring 19.6 cm in CC dimension. May represent a Jody lobe variant. No foc al lesion. GALLBLADDER AND BILE DUCTS: The gallbladder is surgically absent. No significant biliary ductal dilat ation. PANCREAS: Unremarkable. SPLEEN: Unremarkable. ADRENAL GLANDS: Right adrenal gland is unremarkable. Stable left adrenal gland 1.8 cm nodule which is previously characterized as a benign adenoma. KIDNEYS AND URETERS: No evidence of hydronephrosis or renal calculus. The ureters kidneys enhance sym metrically. Contrast is demonstrated within both collecting systems and proximal ureters on the delay ed phase. Simple stable left inferior pole cortical 1.2 cm cyst. No focal parenchymal. PELVIS BLADDER: Underdistended but grossly unremarkable. REPRODUCTIVE: The uterus is surgically absent. Calcifications within the cervical region. ABDOMEN & PELVIS STOMACH AND BOWEL: Stomach and duodenum are unremarkable. Moderate distal colonic stool burden. No fo eliane bowel wall thickening or surrounding inflammatory changes. No evidence of bowel obstruction. PERITONEUM: No evidence of pneumoperitoneum or free fluid. VASCULATURE: Mild atherosclerotic calcifications are present throughout the abdominal aorta and its b ranches. No evidence of aortic aneurysm. MUSCULOSKELETAL: No acute osseous abnormalities. Multilevel degenerative disc disease with disc bulge s at L4-L5 and L5-S1 causing at least mild central canal stenosis. LYMPH NODES: No evidence for lymphadenopathy. SOFT TISSUE/ABDOMINAL WALL: Tiny fat filled umbilical hernia. No additional ventral wall hernia. No f luid collection or stranding changes identified within the abdominal wall. IMPRESSION: No CT evidence for acute abdominal/pelvic process. No evidence for abdominal fluid collection or umbi lical fistula. Similar tiny fat-containing umbilical hernia. [facility], , 05/20/2025 3:12 PM
== END | disposition home or self-care (01) ==
LOC: RADCTMAIN 07:33
PROVIDERS: ATTEND Student in an Organized Health Care Education/Training Program
DX: K42.9 Umbilical hernia without obstruction or gangrene (principal); R19.8 Other specified symptoms and signs involving the digestive system and abdomen; L02.211 Cutaneous abscess of abdominal wall
CPT/HCPCS: 74177; Q9967